=== PATIENT | male | born 1935 ===

== ENCOUNTER 2022-10-09 11:18 | Emergency (ER) | payer OTHER ==
[~2022-10-09] VITALS: Ht 160 cm; Wt 59.0 kg
[~2022-10-09 11:18] MED LIST: CEFADROXIL500 MG PO; PERCOCET 5/3251 TAB PO
[2022-10-09] MEDS ORDERED: TRAZODONE HCL50 MG PO (11:28)
[2022-10-09] MEDS ORDERED: GLIMEPIRIDE2 M1 (11:28)
[2022-10-09] MEDS ORDERED: MEMANTINE HCL10 MG PO (11:28)
== END 2022-10-09 15:11 | disposition home or self-care (01) ==
LOC: ER 11:18
DX: R42 Dizziness and giddiness (principal); S60.222A Contusion of left hand, initial encounter; W06.XXXA Fall from bed, initial encounter; Y93.89 Activity, other specified; Y92.89 Other specified places as the place of occurrence of the external cause; S50.02XA Contusion of left elbow, initial encounter